=== PATIENT | male | born 1985 | race Caucasian/White ===

== ENCOUNTER 2018-11-21 09:20 | Emergency (ER) | payer BC ==
[~2018-11-21] VITALS: Ht 160 cm; Wt 112.0 kg
[2018-11-21 09:24] VITALS: Ht 160 cm; Wt 112.0 kg
[2018-11-21 11:11] LABS: BASOPHIL % 0.5 % (0-2); PLATELET COUNT 254 x10^3mcL (130-400); RED CELL DISTRIBUTION WIDTH 12.5 % (11.5-14.5)
[2018-11-21 11:16] LABS: CALCIUM 10.2 mg/dL (8.5-10.1); CARBON DIOXIDE 23.1 mmol/L (21-32); CHLORIDE SERUM 109 mmol/L (98-107); CREATININE SERUM 0.7 mg/dL (0.7-1.3); GFR1 > 60 mL/min; GLUCOSE SERUM 102 mg/dL (74-106); POTASSIUM SERUM 3.9 mmol/L (3.5-5.1); SODIUM SERUM 143 mmol/L (136-145)
[2018-11-21 11:23] LABS: ALBUMIN 3.8 g/dL (3.4-5.0); ALKALINE PHOSPHATASE 78 U/L (46-116); ALT/SGPT 104 U/L (16-63); AST/SGOT 42 U/L (15-37); BILIRUBIN TOTAL 0.44 mg/dL (0.20-1.00); TOTAL PROTEIN, SERUM 7.5 g/dL (6.4-8.2)
[2018-11-21 13:27] LABS: microscopic required? NO
[2018-11-21 13:53] LABS: urine erythrocyte NEGATIVE (NEGATIVE)
[2018-11-21 15:22] LABS: AMPHETAMINE QUAL UR NONE DETECTED (See below)
[2018-11-21 15:48] VITALS: BP 153/83
== END 2018-11-21 15:49 | disposition home or self-care (01) ==
LOC: ED 09:20
PROVIDERS: Emergency Medicine
DX: R55 Syncope and collapse (principal); R42 Dizziness and giddiness; I10 Essential (primary) hypertension; Z91.013 Allergy to seafood
CPT/HCPCS: 36415; J7030; Q0092

== ENCOUNTER 2019-09-27 13:22 | Emergency (ER) | payer BC ==
[~2019-09-27] VITALS: Ht 160 cm; Wt 110.2 kg
[2019-09-27 13:28] VITALS: Ht 160 cm; Wt 110.2 kg
[2019-09-27 14:05] LABS: BASOPHIL % 0.3 % (0-2); PLATELET COUNT 250 x10^3mcL (130-400); RED CELL DISTRIBUTION WIDTH 12.8 % (11.5-14.5)
[2019-09-27 14:31] LABS: microscopic required? NO
[2019-09-27 14:37] LABS: urine erythrocyte NEGATIVE (NEGATIVE)
[2019-09-27 14:51] LABS: AMPHETAMINE QUAL UR NONE DETECTED (See below)
[2019-09-27 16:48] LABS: ALBUMIN 3.9 g/dL (3.4-5.0); ALKALINE PHOSPHATASE 87 U/L (46-116); ALT/SGPT 89 U/L (16-63); AST/SGOT 35 U/L (15-37); BILIRUBIN TOTAL 0.5 mg/dL (0.20-1.00); CARBON DIOXIDE 21.2 mmol/L (21-32); CHOLESTEROL 140 mg/dL (<200); CREATININE SERUM 0.9 mg/dL (0.7-1.3); GFR1 > 60 mL/min; GLUCOSE SERUM 150 mg/dL (74-106); LIPASE 69 IU/L (73-393); T4(THYROXINE) 5.5 ug/dL (4.7-13.3); TOTAL PROTEIN, SERUM 7.6 g/dL (6.4-8.2)
[2019-09-27 16:53] LABS: HDL CHOLESTEROL 30 mg/dL (40-60)
[2019-09-27 16:57] LABS: CHLORIDE SERUM 107 mmol/L (98-107); POTASSIUM SERUM 3.5 mmol/L (3.5-5.1); SODIUM SERUM 139 mmol/L (136-145)
[2019-09-27 17:30] VITALS: BP 117/72
== END 2019-09-27 17:30 | disposition home or self-care (01) ==
LOC: ED 13:22
PROVIDERS: Emergency Medicine
DX: R07.2 Precordial pain (principal); I10 Essential (primary) hypertension; M79.602 Pain in left arm; E66.01 Morbid (severe) obesity due to excess calories; Z68.41 Body mass index [BMI] 40.0-44.9, adult
CPT/HCPCS: 36415; 83880; Q0092